=== PATIENT | female | born 1940 | race Caucasian/White ===

== ENCOUNTER 2022-02-14 12:03 | Outpatient (CLI) | payer MEDICARE ==
[~2022-02-14 12:03] MED LIST: DULO30CA52 PO
== END 2022-02-14 23:59 | disposition home or self-care (01) ==
LOC: CARD DIAG 12:03
PROVIDERS: ATTEND Internal Medicine Cardiovascular Disease
DX: I05.8 Other rheumatic mitral valve diseases (principal)
CPT/HCPCS: 93306

== ENCOUNTER 2025-07-05 10:24 | Emergency (ER) | payer MEDICARE ==
[~2025-07-05] VITALS: Ht 162.6 cm; Wt 53.0 kg
[~2025-07-05 10:24] MED LIST changes: +CALC-723 PO; +CHOL100053 PO; +ERGO2000 PO; +GABA-530 PO; +LINE600T11 PO; +MECO10005 PO; +MILK1CAP PO; +MULT-1085 PO; +OMEG1CAP61 PO; +UBID100C7 PO
[2025-07-05 11:24] LABS: MEAN PLATELET VOLUME 8.6 FL (7.4-10.4); RED CELL DISTRIBUTION WIDTH 15.1 % (11.5-14.5)
[2025-07-05 11:27] LABS: LEUKOCYTE ESTERASE ,URINE TRACE (Neg); OCCULT BLOOD,URINE LARGE (Neg)
[2025-07-05 11:29] LABS: NITRITES, URINE NEGATIVE (Neg); UA COLLECTION TYPE CLN CATCH MIDSTREAM
[2025-07-05 11:34] LABS: CREATININE 1.95 MG/DL (0.40-0.90); TOTAL CARBON DIOXIDE 23.1 MMOL/L (24-32); eCRCL 18 ML/MIN; eGFR 24 ML/MIN
[2025-07-05 11:35] LABS: SQUAMOUS EPITHELIAL CELL,UR FEW /LPF (FEW)
[2025-07-05] MEDS ORDERED: HYDROcodone/acetaminophen 5mg/325mg tablet PO PRN (11:35)
[2025-07-05] MEDS ORDERED: potassium Cl 20 mEq SR tablet PO PRN ×2 (11:35)
[2025-07-05] MEDS ORDERED: bisacodyl 10mg suppository rectal RC PRN (11:35)
[2025-07-05] MEDS ORDERED: magnesium sulf-water 2g/50mL 50 ML IV PRN (11:35)
[2025-07-05] MEDS ORDERED: HYDROcodone/acetaminophen 10/325mg tab PO PRN (11:35)
[2025-07-05] MEDS ORDERED: magnesium sulf-water 4G/100mL 100 ML IV PRN (11:35)
[2025-07-05] MEDS ORDERED: potassium Cl 40MEQ/1/2NS 520ml 520 ML IV PRN (11:35)
[2025-07-05] MEDS ORDERED: magnesium Cl slow-release 64mg tablet PO PRN (11:35)
[2025-07-05] MEDS ORDERED: ondansetron/PF 4mg/2ml inj IV PRN (11:35)
[2025-07-05] MEDS ORDERED: normal saline 1000ml 1,000 ML IV SCH (11:35)
--- NOTE | 2025-07-05 12:02 | Physician Documentation ---
History of Present Illness ~ General Chief Complaint: See Chief Complaint Stated Complaint: DR GUEVARA Time Seen by MD: 10:50 OK to notify your PCP?: Yes Primary Medical Doctor: diomedes Source: patient, old records Mode of Arrival: Ambulatory Exam Limitations: no limitations History of Present Illness Initial Comments Chief Complaint: Referred back to the ER from the hospitalist for positive blood cultures Caveat: None Independent Historians: None History of Present Illness: Patient is an 85-year-old woman who was admitted to the hospital June 27 for obstructive uropathy due to a stone in her right ureter. Patient had a right ureteral stent placed by Dr. Carrera on June 28. Patient was discharged on June 29. She was diagnosed with acute kidney injury secondary to obstructive uropathy and a urinary tract infection. The hospitalist Dr. Ryan called in a prescription for linezolid which she started last night. Patient had two blood cultures that grew out Gram-positive rods is Streptococcus Mitis/oralis is sensitive to linezolid. Patient's urinary culture showed mixed enrico. Patient has just been feeling weak and fatigued since her hospitalization. No fevers. No abdominal pain. No shortness a breath. Review of systems: All systems were reviewed and are negative except for what is indicated in the history of present illness. Past Medical History: Kidney stones Past Surgical History: Social History: No tobacco use, no alcohol use, no drug use Medications: Reviewed as documented Nursing Notes Allergies: Reviewed as documented in Nursing Notes Medication Reconciliation Allergies: Coded Allergies: Penicillins (Verified Allergy, Severe, 07/05/25) clarithromycin (Verified Allergy, Unknown, BLISTERS, 07/05/25) erythromycin base (Verified Allergy, Unknown, RED BUMPS, 07/05/25) celecoxib (Verified Adverse Reaction, Unknown, IRREGULAR HEARTBEAT, 07/05/25) codeine (Verified Adverse Reaction, Unknown, INCREASE HR, 07/05/25) morphine (Verified Adverse Reaction, Unknown, NAUSEA, 07/05/25) Scheduled Calcium Carbonate/Vitamin D3 (Calcium 500 + D3 Tablet), 600 MG PO BID, (Reported) Cholecalciferol (Vitamin D3) (Vitamin D3), 5 CAP PO DAILY, (Reported) Duloxetine HCl (Duloxetine HCl), 1 TAB PO DAILY, (Reported) Ergocalciferol (Vitamin D2) (Vitamin D2), 1 TAB PO DAILY, (Reported) Gabapentin (Gabapentin), 3 CAP PO TID, (Reported) Linezolid (ZYVOX tablet), 1 TAB PO Q12H Mecobalamin (B12 Active), 1 TAB PO DAILY, (Reported) Milk Thistl/Dandel/Artic/Licor (Super Milk Thistle Capsule), 1 TAB PO DAILY, (Reported) Multivitamin (Multi Vitamin Daily), 1 TAB PO DAILY, (Reported) [place]-3 Acid Ethyl Esters* (Lovaza*), 1 CAP PO Q12H, (Reported) Ubidecarenone (Co Q10), 500 MG PO DAILY, (Reported) Discontinued Medications Hydrocodone Bit/Acetaminophen 5/325 MG (Seale 5/325 MG), 1 TAB PO Q12H PRN PRN for pain, (Reported) Ibuprofen* (Motrin*), 600 MG PO PRN PRN for pain, (Reported) Past Medical History Past Medical History: Kidney Stones Past Surgical History: appendectomy, hysterectomy, orthopedic surgeries Alcohol Use: None Drug Use: none Lives with: Alone Lives In: Home Occupation: retired Review of Systems All Other Systems at this time: Reviewed and Negative ROS Patient denies any other acute symptoms other than above. All other systems are negative Physical Exam Physical Exam Vital Signs: RN Vital Signs have been reviewed: Yes, Temperature: 97.6, Source: Temporal, Heart Rate: 71, Respiratory Rate: 18, BP: 124/64, Pulse Oximetry: 98, Weight: 52.950 Pulse Oximetry Reflects: adequate oxygenation Physical Exam General Appearance: No distress HEENT: Normal OP, moist oral mucosa, PERRL, EOMI Neck: supple, normal ROM, trachea midline Pulmonary: No respiratory distress, CTA, BS equal Cardiac: RRR, no murmur, rub or gallop, GI: nondistended, soft, nontender, normal bowel sounds, no guarding, no rebound Extremities: normal ROM, no swelling, non-tender Skin: intact, dry, warm, no rashes Neuro: AAOx3, speech is clear, no focal motor weakness Psych: normal affect, good eye contact, no apparent hallucination, normal speech Progress Results/Orders Results/Orders Vital Signs 07/05/25 07/05/25 07/05/25 10:32 10:48 11:30 Temp 97.6 Pulse 71 59 Resp 18 16 B/P (MAP) 124/64 141/62 (88) Pulse Ox 98 99 O2 Flow Rate 0 Laboratory Tests Test 07/05/25 10:59 07/05/25 11:13 Urine Specimen Description Cln catch midstream Urine Color Brown Urine Clarity Turbid Urine pH 6.0 Urine Specific [place] 1.020 Urine Protein 100 H Urine Glucose (UA) Negative Urine Ketones Negative Urine Occult Blood Large H Urine Nitrite Negative Urine Bilirubin Negative Urine Urobilinogen 0.2 Urine Leukocyte Esterase Trace H Urine RBC Tntc Urine WBC 5-10 H Urine Squamous Epithelial Cells Few Urine Bacteria 1+ Urine Culture Indicated Indicated Volume Urine Centrifuged 10 ml Urine Comment White Blood Count 10.8 Red Blood Count 3.19 L Hemoglobin 10.4 L Hematocrit 31.3 L Mean Corpuscular Volume 98.2 H Mean Corpuscular Hemoglobin 32.5 H Mean Corpuscular Hemoglobin Concent 33.1 Red Cell Distribution Width 15.1 H Platelet Count 278 Mean Platelet Volume 8.6 Neutrophils (%) (Auto) 82.9 H Lymphocytes (%) (Auto) 8.8 L Monocytes (%) (Auto) 5.6 Eosinophils (%) (Auto) 2.3 Basophils (%) (Auto) 0.4 Neutrophils # (Auto) 9.0 H Lymphocytes # (Auto) 1.0 L Monocytes # (Auto) 0.6 Eosinophils # (Auto) 0.2 Basophils # (Auto) 0.0 CBC Comment Sodium Level 144 Potassium Level 3.4 L Chloride Level 112 H Carbon Dioxide Level 23.1 L Anion Gap 9 Blood Urea Nitrogen 12 Creatinine 1.95 H Estimated GFR/1.73 m2 24 BUN/Creatinine Ratio 6.2 L Glucose Level 94 Lactic Acid Level 0.7 Calcium Level 9.0 Total Bilirubin 0.3 Aspartate Amino Transf (AST/SGOT) 14 Alanine Aminotransferase (ALT/SGPT) 21 Alkaline Phosphatase 59 Total Protein 6.7 Albumin 3.1 L Globulin 3.6 Albumin/Globulin Ratio 0.9 L Procalcitonin < 0.05 Chemistry Comments Microbiology Date/Time Source Procedure Growth Status 07/05/25 11:16 Blood Arm Left Blood Culture - Preliminary NEGATIVE (LESS THAN 24 HOURS) Resulted Medical Decision Making Additional info obtained from: old records Findings Differential diagnosis includes but is not limited to: Drug-resistant infection, urinary tract infection Laboratory data independent interpretation: CBC: Moderate anemia with a hemoglobin of 10.4. This is at her baseline in his stable. CMP: Mild hypokalemia 3.4, bicarb 23.1, creatinine is elevated at 1.95. This is lower than her previous creatinine of 2.471 week ago. Chemistries are otherwise unremarkable. Toxicology: Serology: Urinalysis: RBC TNTC, WBC 5-10, few squamous epithelial cells, 1+ bacteria Emergency department course/medical decision-making: Patient was referred for two positive blood cultures for Gram-positive rods is Streptococcus Mitis/oralis is sensitive to linezolid. Patient was placed on linezolid last night. Patient appears well. She is afebrile and hemodynamically stable. Patient is not wanting to stay for IV antibiotics she states that she needs to leave. Patient is discharged. Patient is instructed to return immediately if she develops a fever or any worsening symptoms. Differential Diagnosis See above Departure Time of Disposition: 14:01 Disposition: 01 HOME / SELF CARE / HOMELESS Impression: Primary Impression: Positive blood cultures Condition: Stable Discharge Instructions: Blood Culture Test Additional Instructions: CONTINUE THE ANTIBIOTICS PRESCRIBED. TURNED TO THE ER IMMEDIATELY IF YOU DEVELOP A FEVER OR WORSENING SYMPTOMS. YOU HAD BLOOD CULTURES POSITIVE FOR BACTERIA. Education Educated: Patient Educated regarding: diagnosis, treatment Signature Scribe Signature: No scribe Attestation: No scribe DUKE ALLEN MD Jul 05, 2025 12:02
[2025-07-05 14:11] VITALS: BP 125/55; PULSE 68; RESP 16; TEMP 98; O2SAT 99
[2025-07-05] MEDS ORDERED: K and/or MAG REPLACEMENT MC SCH (20:00)
[2025-07-05] MEDS ORDERED: heparin, porcine 5000 units/ml vial SQ SCH (20:00)
== END 2025-07-05 14:29 | disposition home or self-care (01) ==
LOC: ER 10:25 → ED HOLD 11:35 → UNDOADMIN 11:35 → ER 14:29
DX: R78.81 Bacteremia (principal); Z87.442 Personal history of urinary calculi; Z88.0 Allergy status to penicillin; Z88.1 Allergy status to other antibiotic agents; Z88.5 Allergy status to narcotic agent; Z90.49 Acquired absence of other specified parts of digestive tract; Z90.710 Acquired absence of both cervix and uterus; Z88.8 Allergy status to other drugs, medicaments and biological substances; Z79.899 Other long term (current) drug therapy; Z60.2 Problems related to living alone
CPT/HCPCS: 36415; 80053; 81001; 83605; 84145; 85025; 87040; 87088; 99285

== ENCOUNTER 2025-07-13 19:13 | Emergency (ER) | payer MEDICARE ==
[~2025-07-13] VITALS: Ht 162.6 cm; Wt 54.0 kg
[~2025-07-13 19:13] MED LIST changes: +simethicone 40mg/0.6ml oral drops 15ml ONE
--- NOTE | 2025-07-13 19:56 | RADIOLOGY REPORT ---
CLINICAL HISTORY: CP TECHNIQUE: Single view of the chest was obtained. COMPARISON: DI CHEST,SINGLE VIEW on DOS: 06/27/25 FINDINGS: The heart size and pulmonary vasculature are normal. The lungs are clear. IMPRESSION: NO ACUTE CARDIOPULMONARY PROCESS.
--- NOTE | 2025-07-13 20:31 | Physician Documentation ---
History of Present Illness ~ Chief Complaint: Bloody Stools Stated Complaint: GI BLEED Time Seen by MD: 20:29 Primary Medical Doctor: diomedes [facility] Patient presents to the emergency room for evaluation of bloody stools. She endorses black stools as well. She denies history of blood thinners NSAID use or history of reflux. She endorses feeling weak in his syncopized several times she does endorse striking her head a few days ago. She also endorses mild left- sided abdominal pain. Denies history of alcohol abuse Medication Reconciliation Allergies: Coded Allergies: Penicillins (Verified Allergy, Severe, 07/05/25) clarithromycin (Verified Allergy, Unknown, BLISTERS, 07/05/25) erythromycin base (Verified Allergy, Unknown, RED BUMPS, 07/05/25) celecoxib (Verified Adverse Reaction, Unknown, IRREGULAR HEARTBEAT, 07/05/25) codeine (Verified Adverse Reaction, Unknown, INCREASE HR, 07/05/25) morphine (Verified Adverse Reaction, Unknown, NAUSEA, 07/05/25) Scheduled Calcium Carbonate/Vitamin D3 (Calcium 500 + D3 Tablet), 600 MG PO BID, (Reported) Cholecalciferol (Vitamin D3) (Vitamin D3), 5 CAP PO DAILY, (Reported) Duloxetine HCl (Duloxetine HCl), 1 TAB PO DAILY, (Reported) Ergocalciferol (Vitamin D2) (Vitamin D2), 1 TAB PO DAILY, (Reported) Gabapentin (Gabapentin), 3 CAP PO TID, (Reported) Linezolid (ZYVOX tablet), 1 TAB PO Q12H Mecobalamin (B12 Active), 1 TAB PO DAILY, (Reported) Milk Thistl/Dandel/Artic/Licor (Super Milk Thistle Capsule), 1 TAB PO DAILY, (Reported) Multivitamin (Multi Vitamin Daily), 1 TAB PO DAILY, (Reported) [place]-3 Acid Ethyl Esters* (Lovaza*), 1 CAP PO Q12H, (Reported) Ubidecarenone (Co Q10), 500 MG PO DAILY, (Reported) Past Medical History Past Medical History: Kidney Stones Past Surgical History: appendectomy, hysterectomy, orthopedic surgeries Alcohol Use: None Drug Use: none Lives with: Alone Lives In: Home Occupation: retired Review of Systems ROS All review of systems negative except as per HPI Physical Exam Vital Signs: Temperature: 97.8, Source: Oral, Heart Rate: 97, Respiratory Rate: 17, BP: 106/61, Pulse Oximetry: 96, Weight: 54.000 Oxygen Flow Rate: 0 Physical Exam General: Patient is awake, alert, oriented x4 in no acute distress Head: Normocephalic and atraumatic. Eyes: Conjunctival normal. EOMI. PERRL. ENT: Mucous membranes moist. Neck: Supple, trachea is midline. Chest: Clear to auscultation bilaterally without rales, rhonchi, or wheezes. There is no accessory muscle use or retractions. Cardiac: RRR without murmurs, gallops, or rubs. Abd: Soft, nondistended, mild left-sided abdominal tenderness to palpation without peritonitis Progress Results/Orders Results/Orders Orders - RICH GLEASON MD Chest,Single View (07/13/25 19:46) Monitor (07/13/25 19:38) Saline Lock (07/13/25 19:38) Oxygen (07/13/25 19:38) Electrocardiogram (07/13/25 19:38) Hs Troponin I W Calculations (07/13/25 19:38) Ct Head (07/13/25 21:12) Ct Abdomen Pelvis (07/13/25 21:13) Page Hospitalist (07/13/25 22:52) Fill Out Med Reconciliation (07/13/25 22:52) Covid19 Binax Poc Result Entry (07/13/25 23:38) Completed Orders - RICH GLEASON MD Chest,Single View (07/13/25 19:46) Cbc/Diff (07/13/25 19:38) BMP (07/13/25 19:38) PBNP (07/13/25 19:38) Hs Troponin I W Calculations (07/13/25 21:38) Hs Troponin I W Calculations (07/13/25 22:38) Type And Screen (07/13/25 19:39) Pantoprazole 40mg Iv (Protonix 40mg Iv) (07/13/25 20:35) Ct Head (07/13/25 21:12) Ct Abdomen Pelvis (07/13/25 21:13) Medications Received in ER Medications (Trade) Dose Ordered Sig/Isak Route PRN Reason Start Time Stop Time Status Last Admin Dose Admin (Protonix 40mg IV) 80 mg ONCE ONCE IV 07/13/25 20:35 07/13/25 20:36 DC 07/13/25 21:03 80 MG Vital Signs 07/13/25 07/13/25 07/13/25 07/13/25 19:34 20:27 20:40 21:40 Temp 97.8 Pulse 97 92 90 Resp 17 18 15 14 B/P (MAP) 106/61 96/61 (73) 108/58 (75) Pulse Ox 96 96 96 O2 Flow Rate 0 0 07/13/25 22:40 Pulse 86 Resp 14 B/P (MAP) 105/56 (72) Pulse Ox 96 Laboratory Tests Test 07/13/25 20:07 07/13/25 20:20 07/13/25 21:31 White Blood Count 11.7 H Red Blood Count 3.11 L Hemoglobin 9.9 L Hematocrit 30.4 L Mean Corpuscular Volume 97.7 Mean Corpuscular Hemoglobin 32.0 H Mean Corpuscular Hemoglobin Concent 32.7 L Red Cell Distribution Width 14.7 H Platelet Count 264 Mean Platelet Volume 8.8 Neutrophils (%) (Auto) 79.4 H Lymphocytes (%) (Auto) 14.0 L Monocytes (%) (Auto) 4.4 Eosinophils (%) (Auto) 1.6 Basophils (%) (Auto) 0.6 Neutrophils # (Auto) 9.3 H Lymphocytes # (Auto) 1.6 Monocytes # (Auto) 0.5 Eosinophils # (Auto) 0.2 Basophils # (Auto) 0.1 CBC Comment Troponin I High Sensitivity 32 35 Troponin I High Sens Percent Delta 8 Troponin I Hi Sens Absolute Change -3 Sodium Level 140 Potassium Level 3.7 Chloride Level 107 Carbon Dioxide Level 21.2 L Anion Gap 12 Blood Urea Nitrogen 31 H Creatinine 2.58 H Estimated GFR/1.73 m2 18 BUN/Creatinine Ratio 12.0 Glucose Level 93 Calcium Level 9.3 Pro-B-Type Natriuretic Peptide 815 H Albumin 3.0 L Chemistry Comments EKG/XRAY/CT/US/VASC/MRI EKG : Additional Comment EKG interpreted by myself shows time of 191, rate 96, sinus rhythm, normal axis, no ST changes Chest X-Ray : Additional Comments Exam: CHEST,SINGLE VIEW CLINICAL HISTORY: CP TECHNIQUE: Single view of the chest was obtained. COMPARISON: DI CHEST,SINGLE VIEW on DOS: 06/27/25 FINDINGS: The heart size and pulmonary vasculature are normal. The lungs are clear. IMPRESSION: NO ACUTE CARDIOPULMONARY PROCESS. Medical Decision Making Additional information obtaine: old records Findings Patient presents to the emergency room with report of blood per rectum. Also reports black stools therefore Protonix initiated. Noted anemia. Diff Dx GI Bleed:Consideration: Include: AE fistula, Angiodysplasia, Bleeding diathesis, Blood loss anemia, Carcinoma, Diverticulosis, Diverticulitis, Esophageal varicies, Esophagitis, Gastritis, Gastroenteritis, Inflammatory BD, Rekha-Danielle syndrome, Meckel's diverticulum, PUD, Other Departure Disposition: 01 HOME / SELF CARE / HOMELESS Impression: Primary Impression: GI bleed Condition: Guarded Referrals: NO PRIMARY CARE PROVIDER (PCP) Signature Scribe Signature: No scribe Attestation: The note accurately reflects work and decisions made by me.Rich Gleason MD 07/13/25 23:51 RICH GLEASON MD Jul 13, 2025 20:31
[2025-07-13 20:42] LABS: MEAN PLATELET VOLUME 8.8 FL (7.4-10.4); RED CELL DISTRIBUTION WIDTH 14.7 % (11.5-14.5)
--- NOTE | 2025-07-13 21:27 | RADIOLOGY REPORT ---
EXAM: CT CT HEAD INDICATION: head strike TECHNIQUE: CT of the head without intravenous contrast. Radiation Dose Information: CT Dose: CTDI volume is 53.95 mGy. Dose-length product is 964.08 mGy*cm The dose indicators for CT are the volume Computed Tomography (CT) Dose Index (CTDIvol) and the Dose Length Product (DLP), and are measured in units of mGy and mGy-cm, respectively. These indicators are not patient dose, but values generated from the CT scanner acquisition factors. The report includes radiation exposure data for exposures received during this examination. COMPARISON: None FINDINGS: Motion artifact degrades fine detail. No acute territorial infarct, intracranial hemorrhage, or mass effect. There are global involutional changes with compensatory prominence of the ventricles and sulci. Patchy periventricular and subcortical white matter hypoattenuation is nonspecific but may be related to small vessel ischemic disease. The orbits are normal. The paranasal sinuses and mastoid air cells are clear. The osseous structures are unremarkable. IMPRESSION: 1. No acute territorial infarct, intracranial hemorrhage, or mass effect. 2. Age-related involutional changes. Chronic microvascular changes.
--- NOTE | 2025-07-13 21:38 | RADIOLOGY REPORT ---
EXAM: CT CT ABDOMEN PELVIS HISTORY: head strike TECHNIQUE: Volumetric multidetector CT images of the abdomen and pelvis were obtained after the administration of intravenous contrast. All CT scans at this facility use dose modulation, iterative reconstruction, and/or weight based dosing when appropriate to reduce radiation dose to as low as reasonably achievable. COMPARISON: CT CT ABDOMEN PELVIS on DOS: 06/27/25 FINDINGS: [LOWER CHEST]: The partially visualized lung bases are clear without a pleural effusion. [LIVER]: Normal hepatic size without suspicious focal lesion. [GALLBLADDER AND BILIARY TREE]: Surgically absent. [SPLEEN]: Unremarkable. [PANCREAS]: Unremarkable. [ADRENAL GLANDS]: Unremarkable [KIDNEYS]: No hydronephrosis. 3 mm bilateral nonobstructive renal caliceal stones. No suspicious focal lesion. [BLADDER]: Right-sided double-J ureteral stent. [REPRODUCTIVE ORGANS]: Hysterectomy. [BOWEL/MESENTERY]: Stomach is normal. Air-fluid level of the high to low rectum. Additional air-fluid levels of the colon. Imaging findings likely compatible with diarrheal illness versus malabsorption and correlate with clinical exam [ASCITES]: Absent [LYMPHADENOPATHY]: No pathologically enlarged lymph nodes by CT size criteria [VASCULATURE]: No aneurysmal dilatation. [ABDOMINAL WALL]: Unremarkable. [MUSCULOSKELETAL]: No acute fracture or aggressive focal osseous lesion. Multifocal degenerative change of the visualized spine. prior healed pubic tubercle fracture. Chondrocalcinosis of the pubic symphysis right hip arthroplasty. IMPRESSION: 1. No CT evidence of an acute traumatic injury in the abdomen/pelvis. 2. Air-fluid levels of the colon. Correlate for diarrheal illness. 3. Nonobstructive bilateral renal caliceal stones.
[2025-07-13 22:44] LABS: PRO BRAIN NATRIURETIC PEPTIDE 815 PG/ML (0-450)
[2025-07-14] VITALS (18 sets, daily range): BP systolic 86–112; BP diastolic 39–93; PULSE 67–89; RESP 8–16; TEMP 97.1–98.6; O2SAT 95–100
[2025-07-14] MEDS ORDERED: magnesium sulf-water 4G/100mL 100 ML IV PRN
[2025-07-14] MEDS ORDERED: potassium Cl 20 mEq SR tablet PO PRN ×2
[2025-07-14] MEDS ORDERED: magnesium Cl slow-release 64mg tablet PO PRN
[2025-07-14] MEDS ORDERED: ondansetron/PF 4mg/2ml inj IV PRN
[2025-07-14] MEDS ORDERED: potassium Cl 40MEQ/1/2NS 520ml 520 ML IV PRN
[2025-07-14 00:04] LABS: CREATININE 2.71 MG/DL (0.40-0.90); TOTAL CARBON DIOXIDE 22.0 MMOL/L (24-32); eCRCL 13 ML/MIN; eGFR 17 ML/MIN
--- NOTE | 2025-07-14 00:13 | HISTORY AND PHYSICAL-Residence ---
History & Physical Providers to CC Resident Creating Document: CHANDU QURESHI RES CC: SHERIDAN VILLELA MD ~ History of Present Illness Primary Medical Doctor: Dr. Menezes Reason for Admit\Complaint: Melena for two weeks and dizziness for a week History of Present Illness 85-year-old female with PMH of osteoporosis/osteoarthritis, recent intervention for right nephrolithiasis/pyelonephritis, GERD, CORBY/obstructive uropathy discharged from this hospital two weeks ago presented to the ER with chief complaints of melena for two weeks and dizziness for a week. Melena- patient stated she was having black-colored stools most of the times associated with diarrhea. She had her last colonoscopy done in 2007, which was normal. She never had EGD done. She endorses heartburn on and off. Denies NSAID use. Denies antiplatelets/anticoagulants use. No history of any GI cancers. Not on any iron pills. Denies abdominal pain however she stated she is having weight loss. Dizziness- the past one week she has been experiencing dizziness 1st episode happened a week ago when she was walking, and had sudden dizziness and fell down and hit her head. She denies loss of consciousness. She stated she is wearing a neck brace since that episode. And the 2nd episode of dizziness happened around 8:00 a.m. of 07/13 again when she was walking she experienced dizziness. Denies vertigo or tinnitus. She fell today and hit her right hip, with no loss of consciousness. Patient stated her blood pressure usually runs low and she has been trying to drink a lot of water, and is using compression stockings on and off. Allergies: Coded Allergies: Penicillins (Verified Allergy, Severe, 07/05/25) clarithromycin (Verified Allergy, Unknown, BLISTERS, 07/05/25) erythromycin base (Verified Allergy, Unknown, RED BUMPS, 07/05/25) celecoxib (Verified Adverse Reaction, Unknown, IRREGULAR HEARTBEAT, 07/05/25) codeine (Verified Adverse Reaction, Unknown, INCREASE HR, 07/05/25) morphine (Verified Adverse Reaction, Unknown, NAUSEA, 07/05/25) Home Medications Home Medications Active ZYVOX tablet (Linezolid) 600 Mg Tablet 1 Tab PO Q12H 10 Days with food Reported Vitamin D2 (Ergocalciferol (Vitamin D2)) 50 Mcg (2000 Unit) Tablet 1 Tab PO DAILY 30 Days Gabapentin 100 Mg Capsule 3 Cap PO TID 30 Days Lovaza* ([place]-3 Acid Ethyl Esters*) 1 Gm Capsule 1 Cap PO Q12H 30 Days B12 Active (Mecobalamin) 1,000 Mcg Tab.chew 1 Tab PO DAILY 30 Days Vitamin D3 (Cholecalciferol (Vitamin D3)) 250 Mcg (11142 Unit) Capsule 5 Cap PO DAILY 30 Days Multi Vitamin Daily (Multivitamin) 1 Each Tablet 1 Tab PO DAILY 30 Days Co Q10 (Ubidecarenone) 100 Mg Capsule 500 Mg PO DAILY Super Milk Thistle Capsule (Milk Thistl/Dandel/Artic/Licor) 254 Mg-10 Mg-40 Mg- 10 Mg Capsule 1 Tab PO DAILY Calcium 500 + D3 Tablet (Calcium Carbonate/Vitamin D3) 500 Mg Calcium-10 Mcg (400 Unit) Tablet 600 Mg PO BID 30 Days Duloxetine HCl 30 Mg Capsule.dr 1 Tab PO DAILY Past Medical History Past Medical History Right nephrolithiasis with a pyelonephritis in June 2025 Fibromyalgia Osteoporosis Uterine cancer s/p hysterectomy in 1962 Chronic back pain Osteoarthritis Past Surgical History Surgical History Comment Stenting for right nephrolithiasis in June 2025 Hysterectomy Hemorrhoidectomy Cholecystectomy Bilateral cataract Multiple back surgeries Multiple orthopedic surgeries including left arm, left hand, right hand, right ankle, left knee and right hip Past Social History Social History Comment Ex-smoker, quitted many years ago, denies alcohol use, denies illicit drug use, lives in her home with her two great granddaughters Smoking: Non-Smoker Alcohol Use: None Drug Use: None Lives with: Alone Lives In: Home Occupation: retired ROS ROS ROS Constitutional: Positive for fatigue, dizziness, weight loss HEENT: No blurring of the vision, No sore throat, epistaxis, tinnitus Cardiovascular: No chest pain/discomfort, palpitations, syncope. No pedal edema Respiratory: No sob, cough,, hemoptysis Gastrointestinal: No abdominal pain, nausea, vomiting. No diarrhea, constipation, positive for melena melena. Genitourinary: No frquency, urgency, incontinence, nocturia. No dysuria, hematuria Musculoskeletal: Positive for myalgias and arthralgias Endocrine: No polydipsia, polyuria. No heat or cold intolerance Neurologic: No headache, vertigo. No weakness, numbness or tingling of extremities Psychiatric: No hallucinations/delusions, no anhedonia, no suicidal ideation\ Hematologic: No bleeding or bruises Reviewed in full. All negative except for pertinent positives in HPI Exam Vitals: Vital Signs Date Time Temp Pulse Resp B/P (MAP) Pulse Ox O2 Delivery O2 Flow Rate FiO2 07/13/25 22:40 86 14 105/56 (72) 96 07/13/25 20:40 0 07/13/25 19:34 97.8 General: General: Pleasant elderly female, AAO x4, not in apparent distress, and malnourished Head: Normocephalic with an atraumatic Eyes: Pupils- 3mm, reacting to light, conjunctiva- anicteric Nose and throat: No polyps, septum- normal, no mucosal ulcers Neck: Supple, no lymphadenopathy, no carotid bruit Respiratory: No use of accessory muscles of respiration, Bilateral normal vesiscular breath sounds heard. No wheeze, rhochi or creps Cardiac: S1-S2 heard, rythm regular, no gallop/murmur Abdomen: non distended, no tenderness, no organomegaly, bowel sounds- heard Extremities: no clubbing, no pedal edema, no deformities, peripheral pulses- 2+ Skin: warm and dry, no rash, no purpura Neuro: No focal deficit, gross cranial nerve exam- normal Diagnostic Data Last Recorded Lab Results: 07/14/2513407/14/25134 Advance Care Planning Advanced Care plannin - 30 Minutes (Status is discussed with him and she opted for full code) Additional Plan 85-year-old female with PMH of osteoporosis/osteoarthritis, recent intervention for right nephrolithiasis/pyelonephritis, GERD, CORBY/obstructive uropathy discharged from this hospital two weeks ago presented to the ER with chief complaints of melena for two weeks and dizziness for a week. After the discharge from the hospital, patient's blood cultures were positive for Streptococcus mitis/oralis and she was started on p.o. linezolid. Repeat blood cultures were negative. Melena -patient does not history of GERD which is uncontrolled, with red flag symptoms of melena and anemia- she would warrant admission for further evaluation -consult GI for EGD -keep patient NPO -received Protonix 80 mg in the ER, start Protonix 40 mg IV b.i.d. Diarrhea -CT abdomen on 06/27 proctitis and duodenitis. -With recent history of antibiotics use, follow up on C diff testing Dizziness Presyncope -EKG- no sinus pauses or arrhythmias -follow up on orthostatic vitals, 2D echo, and telemetry monitoring Falls -due to dizziness patient had two falls hitting her head and hitting her neck, and right hip -CT brain no fracture -follow up on CT cervical spine and x-ray right hip to rule out any fractures -continue fall precautions CORBY -baseline creatinine is 1.9-2.4 -current creatinine is 2.7 -suspect CORBY likely secondary to GI bleed/dehydration -follow up on urine lytes and start NS at 100 cc/hour -renal diet Normocytic Anemia -H&H 9.9/30.4, MCV is 97, with elevated RDW -iron is low, TIBC is low, T sat is eight with ferritin of 224 -likely due to combination of anemia of chronic disease and iron-deficiency anemia -monitor for H&H, and start on p.o. iron sulfate after the evaluation for melena is done Fibromyalgia Osteoporosis Osteoarthritis -continue gabapentin and duloxetine Code Status: Full code Line/tube: PIV DVT prophylaxis: SCD Nutrition: NPO PT: Yes Prognosis: Guarded Disposition: Continue care in ortho floor, GI consult pending Chandu Qureshi MD IM PGY-3 resident Date of Service: Jul 14, 2025 Billing Provider: SHERIDAN VILLELA MD Addendum Attestation I agree with the residents assessment and plan as below: 85 year old female with hx of corby recently discharged now admitted with sridhar and dizziness Plan: PPI IV NPO GI consult repeat cbc and transfuse for hgb <7 mIVF CCT 51 min using HIPPA compliant A/V technology CHANDU QURESHI, RES Jul 14, 2025 00:13 SHERIDAN VILLELA MD Jul 14, 2025 12:36
[2025-07-14] MEDS: PERFLUTREN PROTEIN-A MICROSPHR (Optison) 0.22 MG/ML 3ML VIAL IV ONE (00:22)
[2025-07-14] MEDS: normal saline 1000ml 1,000 ML IV SCH (01:04)
--- NOTE | 2025-07-14 01:04 | RADIOLOGY REPORT ---
EXAM: CT CT CERVICAL SPINE INDICATION: fall with neck pain EXAM DATE: 07/14/2025 12:33 AM COMPARISON: CT CT HEAD on DOS: 07/13/25 TECHNIQUE: Multiple axial CT images of the cervical spine were obtained using bone algorithm. Axial and coronal reformatting was done. Bone and soft tissue windows were reviewed. Radiation Dose Information: CT Dose: CTDI volume is 11.45 mGy. Dose-length product is 240.85 mGy*cm FINDINGS: No acute displaced fracture. There is fusion of C5 through C7. There is grade 1 anterolisthesis of C3 on C4. There are multilevel degenerative changes of the cervical spine characterized by endplate osteophytosis and intervertebral disc space narrowing. Degenerative uncovertebral and facet hypertrophy contribute to multilevel neural foraminal narrowing. The paraspinal soft tissues are unremarkable. There is pleural parenchymal scarring of the lung apices. IMPRESSION: 1. No acute displaced fracture. 2. Degenerative changes of the cervical spine as detailed. 3. All CT scans at this medical facility are performed using dose modulation techniques as appropriate to a performed exam including the following: Automated exposure control was utilized; adjustment of the MA and/or KV according to patient size; and use of iterative reconstruction technique.
[2025-07-14] MEDS ORDERED: HYDR-3965 PO (01:17)
[2025-07-14] MEDS ORDERED: CALC0.2536 PO (01:17)
--- NOTE | 2025-07-14 01:50 | RADIOLOGY REPORT ---
CLINICAL INDICATION: fall with right hip pain TECHNIQUE: DI HIP UNILATERAL 2 VIEWS Comparison: None FINDINGS/IMPRESSION: : Hardware status post right hip arthroplasty without evidence of complication. There is no evidence of acute fracture or dislocation. Soft tissues are unremarkable. Right nephroureteral stent noted.
[2025-07-14 01:55] LABS: MEAN PLATELET VOLUME 8.1 FL (7.4-10.4); RED CELL DISTRIBUTION WIDTH 14.8 % (11.5-14.5)
[2025-07-14 02:12] LABS: INR 1.0 INR
[2025-07-14 02:13] LABS: APTT 27 SECONDS (22-32)
[2025-07-14 02:15] LABS: CREATININE 2.56 MG/DL (0.40-0.90); TOTAL CARBON DIOXIDE 22.8 MMOL/L (24-32); eCRCL 14 ML/MIN; eGFR 18 ML/MIN
[2025-07-14 02:42] LABS: LEUKOCYTE ESTERASE ,URINE MODERATE (Neg); NITRITES, URINE NEGATIVE (Neg); OCCULT BLOOD,URINE LARGE (Neg)
[2025-07-14 02:46] LABS: UA COLLECTION TYPE NON-SPECIFIED
[2025-07-14 02:48] LABS: AMORPHOUS URATES 1+; MUCUS STRANDS FEW /LPF (Neg); SQUAMOUS EPITHELIAL CELL,UR FEW /LPF (FEW); YEAST MODERATE /HPF (NEGATIVE)
[2025-07-14 02:57] LABS: CREATININE,URINE RANDOM 111.0 MG/DL; UA UREA RANDOM 585.0 MG/DL
[2025-07-14 02:59] LABS: OSMOLALITY UA 424.0 MOSM/K (50-1400)
--- NOTE | 2025-07-14 04:43 | ELECTROCARDIOGRAPH REPORT ---
[facility] Test Date: 2025-07-13 Test Time: 19:17:16 Pat Name: ALISE LYNN Department: EMERGENCY ROOM Room: ED 19 1 Gender: F [employer] Research Engineer: JANET : 1940 Requested By: SABINA SALOMON Order Number: [id number] Reading MD: Dr. Yogesh Johnson Measurements Intervals [place] Rate: 96 P: -15 [place]: 165 QRS: 20 QRSD: 68 T: 54 QT: 341 QTc: 431 Interpretive Statements Sinus rhythm Electronically Signed On 07-16-2025 7:41:[address] Yogesh Johnson Please click the below link to view image of tracing.
[2025-07-14] MEDS: K and/or MAG REPLACEMENT MC SCH (08:00)
[2025-07-14] MEDS: magnesium sulf-water 2g/50mL 50 ML IV PRN (08:34)
[2025-07-14] MEDS ORDERED: dextrose 50%-water 50ml dispensing syringe IV ONE ×2 (10:14→10:20)
[2025-07-14] MEDS ORDERED: propofol inj 20 ML IV ONE (11:03)
--- NOTE | 2025-07-14 14:32 | PROGRESS NOTE ---
Daily Progress Note Providers to CC No new complaint today awaiting to go to EGD procedure ~ Central Line/PICC still needed: No Beltre-Non Protocol Beltre Indications Met/Not Met: F/C Indications Not Met Antibiotic Timeout Antibiotic Ordered?: Yes MRSA Education MRSA Education Provided to pt: Yes Subjective As above Objective Vital Signs Date Time Temp Pulse Resp B/P (MAP) Pulse Ox O2 Delivery O2 Flow Rate FiO2 07/14/25 11:18 98.1 73 16 86/40 (55) 99 Nasal Cannula 3.0 Vital signs, stable ,afebrile. Pulse Oximetry reflects adequate oxygenation on 3 L oxygen nasal cannula General: well developed, well nourished. Awake , alert, and oriented x4, resting comfortably in the bed, in no acute distress . Skin: Warm, dry, no pallor, no rash or petechiae. HEENT: Atraumatic, normocephalic, EOMI, anicteric sclera B; pink conjunctiva; PERRLA, normal oropharynx, moist oral and nasal mucosa. Tympanic membrane , nose , throat clear. Neck: Trachea midline. Supple, full range of motion, no JVD, bruit , hepatojugular reflex , lymphadenopathy or masses, or other lesions Cardiac: Regular rhythm, regular rate no murmurs, rubs, or gallops. Normal S1 and S2, no S3 noticed. PMI is normal. Respiratory: Equal breath sounds bilaterally, no tachypnea; lungs clear to auscultation bilaterally, no wheezing ,rub or rales, or crackles. Chest wall is symmetric and without deformity. No signs of trauma. Chest wall is nontender. No signs of respiratory distress. Resonance is normal upon percussion bilaterally. Gastrointestinal: Abdomen symmetric, non-distended, soft, non-tender, normal bowel sounds x4 quadrant, normoactive, no hepatosplenomegaly , no masses , no bruit, no flank pain bilaterally. No voluntary guarding, rebound, or rigidity. No tenderness to percussion. No pulsatile masses. Equal femoral pulses. No Ramsey's sign or McBurney point tenderness. Back; no CVA tenderness bilaterally, no deformities. Neck and back are without deformity as well. No tenderness noted on palpation of the spinous processes. Spinous processes are midline. Cervical, thoracic, and lumbar Musculoskeletal: Extremities, normal range of motion, non-tender, muscle strength 5/5 x 4. Negative Homans signs bilaterally on lower extremity. Distal pulses full symmetrical, no clubbing, cyanosis , edema. Neurological: Speech is clear, alert, and oriented x 4. No motor or sensory deficit, deep tendon reflexes normal, cerebellar intact. Cranial nerves II-XII intact. Psych: Alert and or appropriate, normal affect. Vascular: Good distal pulses, which are equal x4; capillary refill less than 2 seconds. Lymphatic, no lymphadenopathy. Result Diagram: 07/14/255 07/14/25134 Coagulation Studies Laboratory Tests Test 07/14/25 01:35 Prothrombin Time 10.6 SECONDS (9.0-12.0) INR International Normalized Ratio 1.0 INR Activated Partial Thromboplast Time 27 SECONDS (22-32) Coagulation Comments Problem\Assessment\Plan Assessment/ Plan 85-year-old female with PMH of osteoporosis/osteoarthritis, recent intervention for right nephrolithiasis/pyelonephritis, GERD, CORBY/obstructive uropathy discharged from this hospital two weeks ago presented to the ER with chief complaints of melena for two weeks and dizziness for a week. After the discharge from the hospital, patient's blood cultures were positive for Streptococcus mitis/oralis and she was started on p.o. linezolid. Repeat blood cultures were negative. Melena -patient does not history of GERD which is uncontrolled, with red flag symptoms of melena and anemia- she would warrant admission for further evaluation -consult GI for EGD -keep patient NPO -received Protonix 80 mg in the ER, start Protonix 40 mg IV b.i.d. Complicated UTI, on IV Levaquin Diarrhea -CT abdomen on 06/27 proctitis and duodenitis. -With recent history of antibiotics use, follow up on C diff testing Dizziness Presyncope -EKG- no sinus pauses or arrhythmias -follow up on orthostatic vitals, 2D echo, and telemetry monitoring Falls -due to dizziness patient had two falls hitting her head and hitting her neck, and right hip -CT brain no fracture -follow up on CT cervical spine and x-ray right hip to rule out any fractures -continue fall precautions CORBY -baseline creatinine is 1.9-2.4 -current creatinine is 2.7 -suspect CORBY likely secondary to GI bleed/dehydration -follow up on urine lytes and start NS at 100 cc/hour -renal diet Normocytic Anemia -H&H 9.9/30.4, MCV is 97, with elevated RDW -iron is low, TIBC is low, T sat is eight with ferritin of 224 -likely due to combination of anemia of chronic disease and iron-deficiency anemia -monitor for H&H, and start on p.o. iron sulfate after the evaluation for melena is done Fibromyalgia Osteoporosis Osteoarthritis -continue gabapentin and duloxetine Code Status: Full code Line/tube: PIV DVT prophylaxis: SCD Sepsis Screening Reassessment Date: Jul 14, 2025 Date of Service: Jul 14, 2025 Billing Provider: AUGIE VAZQUEZ MD Common Visit Codes: [id number] INP/OBS CARE(HIGH) AUGIE VAZQUEZ MD Jul 14, 2025 14:32
--- NOTE | 2025-07-14 18:09 | CONSULTATION REPORT - RESIDENT ---
Consult Providers to CC Resident Creating Document: PIPER LONG RES History of Present Illness Reason for Admit\Complaint: Melena for two weeks History of Present Illness Patient is an 85-year-old female with a recent history of right nephrolithiasis complicated by pyelonephritis and obstructive uropathy, status post ureteral stent placement two weeks ago. She now presents with complaint of melena for the past two weeks and dizziness for the past week. The patient describes her stool is black in color often associated with a loose consistency, though she denies true diarrhea. She also reports two episodes of dizziness; one occurring a week ago while walking and another the night prior to admission; without LOC. She denies abdominal pain, hematemesis, or hematochezia. There is no history of NSAID use, antiplatelet therapy, or anticoagulants. She is not on iron supplementation. She denies any known history of GI malignancy. She reports unintentional weight loss over the past several months. Allergies: Coded Allergies: Penicillins (Verified Allergy, Severe, 07/05/25) clarithromycin (Verified Allergy, Unknown, BLISTERS, 07/05/25) erythromycin base (Verified Allergy, Unknown, RED BUMPS, 07/05/25) celecoxib (Verified Adverse Reaction, Unknown, IRREGULAR HEARTBEAT, 07/05/25) codeine (Verified Adverse Reaction, Unknown, INCREASE HR, 07/05/25) morphine (Verified Adverse Reaction, Unknown, NAUSEA, 07/05/25) Home Medications Home Medications Active ZYVOX tablet (Linezolid) 600 Mg Tablet 1 Tab PO Q12H 10 Days with food Reported [place] 5/325 MG (Acetaminophen/Hydrocodone Bitart) 5 Mg/325 Mg Tablet 1 Tab PO Q12H PRN PRN 5 Days CALCITRIOL capsule (Calcitriol) 0.25 Mcg Capsule 0.25 Mcg PO Vitamin D2 (Ergocalciferol (Vitamin D2)) 50 Mcg (2000 Unit) Tablet 1 Tab PO DAILY 30 Days Gabapentin 100 Mg Capsule 3 Cap PO TID 30 Days Lovaza* ([place]-3 Acid Ethyl Esters*) 1 Gm Capsule 1 Cap PO Q12H 30 Days B12 Active (Mecobalamin) 1,000 Mcg Tab.chew 1 Tab PO DAILY 30 Days Vitamin D3 (Cholecalciferol (Vitamin D3)) 250 Mcg (32932 Unit) Capsule 5 Cap PO DAILY 30 Days Multi Vitamin Daily (Multivitamin) 1 Each Tablet 1 Tab PO DAILY 30 Days Co Q10 (Ubidecarenone) 100 Mg Capsule 500 Mg PO DAILY Super Milk Thistle Capsule (Milk Thistl/Dandel/Artic/Licor) 254 Mg-10 Mg-40 Mg- 10 Mg Capsule 1 Tab PO DAILY Calcium 500 + D3 Tablet (Calcium Carbonate/Vitamin D3) 500 Mg Calcium-10 Mcg (400 Unit) Tablet 600 Mg PO BID 30 Days Duloxetine HCl 30 Mg Capsule. 1 Tab PO DAILY Past Medical History Past Medical History Right nephrolithiasis, with pyelonephritis two weeks ago, history of uterine cancer status post hysterectomy, osteoarthritis Past Surgical History Surgical History Comment Stent for right nephrolithiasis, hysterectomy, hemorrhoidectomy, cholecystectomy Past Social History Social History Comment Patient lives with her granddaughters in [place]. She is an ex smoker, coated long ago, denies alcohol consumption or recreational drug use. Exam Vitals: Vital Signs Date Time Temp Pulse Resp B/P (MAP) Pulse Ox O2 Delivery O2 Flow Rate FiO2 07/14/25 13:30 72 10 110/54 (72) 95 Room Air 07/14/25 11:40 3.0 07/14/25 11:18 98.1 General: Pleasant elderly female, AAO x4, not in apparent distress, and malnourished Respiratory: No use of accessory muscles of respiration, Bilateral normal vesiscular breath sounds heard. No wheeze, rhochi or creps Cardiac: S1-S2 heard, rythm regular, no gallop/murmur Abdomen: non distended, no tenderness, no organomegaly, bowel sounds- heard Extremities: no clubbing, no pedal edema, no deformities, peripheral pulses- 2+ Skin: warm and dry, no rash, no purpura Neuro: No focal deficit, gross cranial nerve exam- normal Diagnostic Data Last Recorded Lab Results: 07/14/2513407/14/25134 Diagnostic Data: Laboratory Tests Test 07/14/25 01:35 Prothrombin Time 10.6 SECONDS (9.0-12.0) INR International Normalized Ratio 1.0 INR Activated Partial Thromboplast Time 27 SECONDS (22-32) Coagulation Comments Additional Plan Assessment and plan: 1. Melena: Patient has normocytic anemia and reports melena for two weeks, suggesting an upper GI source of bleeding. Although her hemoglobin is modestly decreased, the presence of dark stool and dizziness warrants further evaluation. An EGD is indicated to identify potential causes such as PUD, erosive gastritis, duodenitis, vascular ectasia, or malignancy. The goal is both diagnostic and therapeutic; to locate and, if possible, treat the bleeding source. The patient has remained NPO since midnight Protonix 40 mg IV twice daily is continued She will undergo EGD for definitive evaluation this morning Monitor H&H closely, Transfuse if hemoglobin drops < 7.0 or if the patient becomes symptomatic Maintain hemodynamics monitoring and ensure IV access Further management will depend on EGD findings Patient will follow up with Dr. Parker in her OP clinic in 2 weeks. 2. Other comorbidities: Presyncope, CORBY, Osteoarthritis, Fibromyalgia Management per primary team Code status: Full code DVT prophylaxis: LUIS Long Internal Medicine Resident, PGY-3 Date of Service: Jul 14, 2025 Billing Provider: DIAN NAYLOR MD, SHAMS, RES Jul 14, 2025 18:09
--- NOTE | 2025-07-14 19:37 | CARDIOLOGY REPORT ---
APPROVED REPORT EXAM: Comprehensive 2D, Doppler, and color-flow Echocardiogram. 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 152.0 cm/s AoV VTI 28.2 cm AO Peak GR. 9.2 mmHg AO Mean GR. 4 mmHg LVOT VTI 25.74 cm LVOT Peak Cyril. 124.8 cm/s LIYAH(VTI)/BSA 2.66 cm2/m2 LIYAH (VTI) 2.66 cm2 AV DI 0.91 % Mitral Valve MV E Velocity 74.8 cm/s MV Peak Gr. 4 mmHg MV DECEL TIME 212 ms MV A Velocity 102.4 cm/s MV PHT 68 ms E/A Ratio 0.7 MVA (PHT) 3.24 cm2 MV VMax 102.0 cm/s TDI Medial E' P. V 8.58 cm/s E/Medial E' 8.7 Tricuspid Valve TR P. Velocity 246 cm/s RAP ESTIMATE 10 mmHg TR Peak Gr. 24 mmHg RVSP 34 mmHg Pulmonary Vein S1 Velocity 51.6 cm/s D2 Velocity 30.2 cm/s PVa Velocity 34.1 cm/s PVa Duration 84 msec LEFT VENTRICLE Normal LV size and wall thickness. Overall systolic function is normal. Over LVEF is 60%. RIGHT VENTRICLE RV appears normal in size and contractility. RVSP is estimated at 34 mmHG. ATRIA The left atrium size is normal. AORTIC VALVE Trileaflet AV appears sclerotic without stenosis. No insufficiency. MITRAL VALVE MV is thickened with mild annular calcification and no stenosis. Trace mitral regurgitation. TRICUSPID VALVE The tricuspid valve is normal in structure. Trace tricuspid regurgitation. PULMONIC VALVE The pulmonary valve is normal in structure. Trace pulmonic insufficiency. GREAT VESSELS The aortic root is normal in size. The IVC is normal in size and collapses >50% with inspiration. PERICARDIUM There is no pericardial effusion. Other Information Study Quality: Adequate Conclusion Over LVEF is 60%. Normal LV size and wall thickness. Overall systolic function is normal. RV appears normal in size and contractility. RVSP is estimated at 34 mmHG. Trileaflet AV appears sclerotic without stenosis. No insufficiency. Trace mitral regurgitation. Trace tricuspid regurgitation. Trace pulmonic insufficiency. There is no pericardial effusion.
--- NOTE | 2025-07-15 19:16 | PATHOLOGY REPORT ---
[facility] [address] [place] [address] SURGICAL PATHOLOGY REPORT CaseNumber: [id number] Surgeon:Azael Dawkins M.D. CLINICAL INFORMATION CLINICAL INFORMATION: Not provided. DIAGNOSIS DIAGNOSIS: STOMACH, ANTRUM; BIOPSY - FOCAL MILD ACUTE AND MILD GENERALIZED CHRONIC GASTRITIS. - NEGATIVE FOR HELICOBACTER PYLORI. MICROSCOPIC DESCRIPTION MICROSCOPIC DESCRIPTION: A single slide of the gastric antral biopsy is reviewed. Present is mild generalized chronic, and focal mild acute, gastritis. The gastric mucosa is intact without erosion or ulceration. There is no increased number of intraepithelial lymphocytes. In the several crypts, there are few scattered neutrophils. There are scattered intraepithelial neutrophils. There are no features of dysplasia or malignancy. An immunoperoxidase stain was performed. The control stains appropriately positive and negative. The antibody utilized was to H. pylori. No stainable organisms are identified. (bb) GROSS DESCRIPTION GROSS DESCRIPTION: Received in a container of formalin labeled with the patient's name, number, and "antrum BX" are two pieces of romeo tissue 0.4 x 0.1 x 0.1 and 0.6 x 0.1 x 0 1 cm. The specimen is entirely submitted as A1. The time at which the specimen was removed was 1113. The time at which the specimen was placed in formalin was 1114. Electronically signed by: Todd Olson M.D. 07/15/2025 6:46:00 PM
[2025-07-16] MEDS ORDERED: levoFLOXACIN-Levaquin 250mg/D5 50 ML IV SCH (08:00)
== END 2025-07-14 01:00 | disposition home or self-care (01) ==
LOC: ER 19:14 → UNDOADMIN 07-14 00:05 → ED HOLD 07-14 00:05 → ER 07-14 01:00 → UNDODISIN 07-14 01:00
DX: K92.2 Gastrointestinal hemorrhage, unspecified (principal); Z88.1 Allergy status to other antibiotic agents; Z88.0 Allergy status to penicillin; Z88.5 Allergy status to narcotic agent; Z79.899 Other long term (current) drug therapy; Z87.442 Personal history of urinary calculi; Z98.890 Other specified postprocedural states; Z90.710 Acquired absence of both cervix and uterus; Z20.822 Contact with and (suspected) exposure to COVID-19
CPT/HCPCS: 36415; 43239; 70450; 71045; 72125; 73502; 74176; 80048; 80053; 81001; 82248; 82570; 82948; 83735; 83880; 83930; 83935; 84133; 84300; 84484; 84540; 85025; 85610; 85730; 86885; 86900; 86901; 87077; 87088; 87186; 87811; 88305; 88342; 93005; 93306; 96361; 96365; 96366; 96367; 96376; 99285; A4618; J2470; J2704; J7030; J7120; Z7512; Z7610; G0378